=== PATIENT | male | born 1965 | race Caucasian/White ===

== ENCOUNTER 2017-10-03 16:21 | Emergency (ER) | payer SELFPAY ==
[2017-10-03 16:43] VITALS: BP 149/84; PULSE 75; RESP 16; TEMP 98.2; O2SAT 100
--- NOTE | 2017-10-03 17:36 | RADRPT ---
EXAM DATE/TIME: 10/03/2017 16:58 [facility] COMPARISON: No previous studies available for comparison. INDICATIONS : Palpitations. Patient states weakness and vomiting. MEDICAL HISTORY : None. SURGICAL HISTORY : None. ENCOUNTER: Initial ACUITY: 4 - 6 days PAIN SCORE: 0/10 LOCATION: Bilateral chest FINDINGS: Mild cardiomegaly is noted. The pulmonary vascular pattern is normal. The lungs are clear. CONCLUSION: Mild cardiomegaly. No focal infiltrate or pulmonary vascular congestion. Kane Ontiveros MD on October 03, 2017 at 17:32 Board Certified Radiologist. This report was verified electronically.
[2017-10-03 18:01] LABS: AUTOMATED NEUTROPHIL # 6.8 TH/MM3 (1.8-7.7); BASOPHIL # 0.1 TH/MM3 (0-0.2); BASOPHIL % 0.5 % (0.0-2.0); EOSINOPHIL % 0.3 % (0.0-4.0); HEMATOCRIT 41.7 % (39.0-51.0); HEMOGLOBIN 14.6 GM/DL (13.0-17.0); LYMPHOCYTE # 1.8 TH/MM3 (1.0-4.8); MEAN CELL VOLUME 88.2 FL (80.0-100.0); MEAN CORPUSCULAR HEMOGLOBIN 30.8 PG (27.0-34.0); MEAN CORPUSCULAR HGB CONC 34.9 % (32.0-36.0); MONO % 7.2 % (0.0-8.0); MONOCYTE # 0.7 TH/MM3 (0-0.9); PLATELET COUNT 333 TH/MM3 (150-450); RED BLOOD COUNT 4.73 MIL/MM3 (4.50-5.90); RED CELL DISTRIBUTION WIDTH 12.9 % (11.6-17.2); WHITE BLOOD COUNT 9.4 TH/MM3 (4.0-11.0)
[2017-10-03 18:18] LABS: ALBUMIN 4.1 GM/DL (3.4-5.0); AST (GOT) 27 U/L (15-37); BLOOD UREA NITROGEN 12 MG/DL (7-18); CALCIUM 8.3 MG/DL (8.5-10.1); CHLORIDE 93 MEQ/L (98-107); CREATININE 0.96 MG/DL (0.60-1.30); GLOMERULAR FILTRATION RATE 83 ML/MIN (>89); GLUCOSE,RANDOM 108 MG/DL (74-106); MAGNESIUM 1.8 MG/DL (1.5-2.5); SODIUM (NA) 127 MEQ/L (136-145)
[2017-10-03 18:19] LABS: ALT (GPT) 37 U/L (12-78)
[2017-10-03 18:20] VITALS: BP 160/83; PULSE 79; RESP 16; O2SAT 98
[2017-10-03 18:21] LABS: BILIRUBIN, URINE NEG (NEG); BLOOD, URINE NEG (NEG); GLUCOSE,URINE NEG (NEG); HYALINE CAST, URINE 11 /lpf (RARE); KETONE, URINE NEG (NEG); MUCUS URINE FEW /lpf (OCC); NITRITE,URINE NEG (NEG); SQUAMOUS EPITHELIAL CELL URINE <1 /hpf (0-5); URINE COLOR YELLOW (YELLW/STRAW); URINE LEUKOCYTE ESTERASE NEG (NEG)
[2017-10-03 18:23] LABS: ALKALINE PHOSPHATASE 62 U/L (45-117); TOTAL BILIRUBIN ADULT 0.9 MG/DL (0.2-1.0); TOTAL PROTEIN 7.5 GM/DL (6.4-8.2); TROPONIN I LESS THAN 0.02 NG/ML (0.02-0.05)
[2017-10-03] MEDS ORDERED: SODIUM CHLOR 0.9% 1000 ML INJ 1,000 ML IV SCH (18:27)
[2017-10-03 18:28] LABS: PROTHROMBIN TIME - PATIENT 10.3 SEC (9.8-11.6)
--- NOTE | 2017-10-03 18:29 | PD ---
HPI Chief Complaint: General Weakness Time Seen by Provider: 18:27 Travel History International Travel<30 days: No Contact w/Intl Traveler<30days: No History of Present Illness HPI This is a 52-year-old male with history of hypertension who presents for evaluation. He reports that for the past 3 days he has had generalized fatigue , loss of appetite. He reports that today he developed nausea and has had 3 episodes of nonbloody emesis. He denies headache, chest pain, shortness of breath, abdominal pain, diarrhea, constipation, fevers, chills. He does report that he has chronic neck pain with associated radicular symptoms in the left arm but this is not new. He does report that over the past several weeks he has been drinking more alcohol than usual, specifically he reports that he drinks 2-3 beers a day. He reports that he was at a bar 3 days ago and he used some cocaine. He reports that he has not used any illicit drug in several years. He reports that he has a primary care physician in [place] but he lives in [facility]. He has no other complaints at this time. [facility] Past Medical History Hypertension: Yes Social History Alcohol Use: Yes Tobacco Use: No Allergies-Medications (Allergen,Severity, Reaction): Coded Allergies: No Known Allergies (Unverified , 10/03/17) Reported Meds & Prescriptions Reported Meds & Active Scripts Active Zofran (Ondansetron HCl) 4 Mg Tab 4 Mg PO Q6HR PRN Potassium Chloride ER (Potassium Chloride) 20 Meq Tab 20 Meq PO BID 3 Days Reported Lisinopril 10 Mg Tab 10 Mg PO DAILY Carvedilol 12.5 Mg Tab 12.5 Mg PO BID Hydrochlorothiazide 50 Mg Tab 50 Mg PO BID Pravastatin 40 Mg Tab 40 Mg PO DAILY Review of Systems Except as stated in HPI: all other systems reviewed are Neg Physical Exam Narrative GENERAL: Well-developed well-nourished male in no acute distress SKIN: Warm and dry. HEAD: Atraumatic. Normocephalic. EYES: Pupils equal and round. No scleral icterus. No injection or drainage. ENT: No nasal bleeding or discharge. Mucous membranes pink and moist. NECK: Trachea midline. No JVD. CARDIOVASCULAR: Regular rate and rhythm. No murmur appreciated. RESPIRATORY: No accessory muscle use. Clear to auscultation. Breath sounds equal bilaterally. No crackles no wheezing no rhonchi. GASTROINTESTINAL: Abdomen soft, non-tender, nondistended. Hepatic and splenic margins not palpable. MUSCULOSKELETAL: No obvious deformities. No clubbing. No cyanosis. No edema. NEUROLOGICAL: Awake and alert. No obvious cranial nerve deficits. Motor grossly within normal limits. Normal speech. PSYCHIATRIC: Appropriate mood and affect; insight and judgment normal. Data Data Last Documented VS Vital Signs Date Time Temp Pulse Resp B/P (MAP) Pulse Ox O2 Delivery O2 Flow Rate FiO2 10/03/17 18:20 Room Air 10/03/17 18:20 79 16 160/83 (108) 98 10/03/17 16:43 98.2 Orders Orders Electrocardiogram (10/03/17 16:47) Complete Blood Count With Diff (10/03/17 16:47) Comprehensive Metabolic Panel (10/03/17 16:47) Magnesium (Mg) (10/03/17 16:47) Ckmb (Isoenzyme) Profile (10/03/17 16:47) Troponin I (10/03/17 16:47) Act Partial Throm Time (Ptt) (10/03/17 16:47) Prothrombin Time / Inr (Pt) (10/03/17 16:47) Urinalysis - C+S If Indicated (10/03/17 16:47) Chest, Pa & Lat (10/03/17 16:47) Ct Brain W/O Iv Contrast(Rout) (10/03/17 16:47) Blood Glucose (10/03/17 16:47) Drug Screen, Random Urine (10/03/17 18:27) Potassium Chloride (Kcl) (10/03/17 18:30) Ondansetron Inj (Zofran Inj) (10/03/17 18:30) Sodium Chlor 0.9% 1000 Ml Inj (Ns 1000 M (10/03/17 18:27) Labs Laboratory Tests Test 10/03/17 17:25 White Blood Count 9.4 TH/MM3 Red Blood Count 4.73 MIL/MM3 Hemoglobin 14.6 GM/DL Hematocrit 41.7 % Mean Corpuscular Volume 88.2 FL Mean Corpuscular Hemoglobin 30.8 PG Mean Corpuscular Hemoglobin Concent 34.9 % Red Cell Distribution Width 12.9 % Platelet Count 333 TH/MM3 Mean Platelet Volume 8.0 FL Neutrophils (%) (Auto) 73.0 % Lymphocytes (%) (Auto) 19.0 % Monocytes (%) (Auto) 7.2 % Eosinophils (%) (Auto) 0.3 % Basophils (%) (Auto) 0.5 % Neutrophils # (Auto) 6.8 TH/MM3 Lymphocytes # (Auto) 1.8 TH/MM3 Monocytes # (Auto) 0.7 TH/MM3 Eosinophils # (Auto) 0.0 TH/MM3 Basophils # (Auto) 0.1 TH/MM3 CBC Comment DIFF FINAL Differential Comment Prothrombin Time 10.3 SEC Prothromb Time International Ratio 1.0 RATIO Activated Partial Thromboplast Time 25.5 SEC Urine Color YELLOW Urine Turbidity CLEAR Urine pH 5.0 Urine Specific S[place] 1.021 Urine Protein NEG mg/dL Urine Glucose (UA) NEG mg/dL Urine Ketones NEG mg/dL Urine Occult Blood NEG Urine Nitrite NEG Urine Bilirubin NEG Urine Urobilinogen LESS THAN 2.0 MG/DL Urine Leukocyte Esterase NEG Urine WBC LESS THAN 1 /hpf Urine Squamous Epithelial Cells <1 /hpf Urine Hyaline Casts 11 /lpf Urine Mucus FEW /lpf Microscopic Urinalysis Comment CULT NOT INDICATED Blood Urea Nitrogen 12 MG/DL Creatinine 0.96 MG/DL Random Glucose 108 MG/DL Total Protein 7.5 GM/DL Albumin 4.1 GM/DL Calcium Level 8.3 MG/DL Magnesium Level 1.8 MG/DL Alkaline Phosphatase 62 U/L Aspartate Amino Transf (AST/SGOT) 27 U/L Alanine Aminotransferase (ALT/SGPT) 37 U/L Total Bilirubin 0.9 MG/DL Sodium Level 127 MEQ/L Potassium Level 3.0 MEQ/L Chloride Level 93 MEQ/L Carbon Dioxide Level 23.0 MEQ/L Anion Gap 11 MEQ/L Estimat Glomerular Filtration Rate 83 ML/MIN Total Creatine Kinase 100 U/L Troponin I LESS THAN 0.02 NG/ML [facility] Medical Decision Making Medical Screen Exam Complete: Yes Emergency Medical Condition: Yes Medical Record Reviewed: Yes Differential Diagnosis Electrolyte abnormality, gastroenteritis, dehydration, gastritis, withdrawal Narrative Course The patient was placed on ECG monitoring pulse oximetry, 12-lead EKG was obtained revealing sinus rhythm with arrhythmia with no ischemic changes. The patient was given IV fluids, Zofran. His lab work is been reviewed. His sodium is 127, chloride is 193, potassium is 3.0, random glucose 108, calcium 8.3 otherwise unremarkable, cardiac enzymes negative, urinalysis normal, chest x -ray reveals mild cardiomegaly, CT brain reveals no acute normalities. The patient was given 40 mEq oral potassium chloride. Upon further discussion with the patient he does report that over the past several days he has been consuming larger amounts of beer than normal and this may be the etiology for this mild hyponatremia. I offered to admit the patient for observation overnight to correct his electrolytes however he is declining at this time and feels well enough to go home. He will be given prescriptions for Zofran and potassium chloride. Recommended calling his primary care physician tomorrow for follow-up purposes. Diagnosis Primary Impression: Hypokalemia Additional Impression: Hyponatremia Additional Instructions: Please provide the patient a copy of his lab work upon discharge. Medication as prescribed. Follow-up with your primary care physician in the next few days. Return for any acutely new or worsening symptoms such as mental status change, intractable nausea and vomiting Med/Other Pt SpecificInfo: Prescription(s) given Scripts Ondansetron (Zofran) 4 Mg Tab 4 MG PO Q6HR Y for NAUSEA OR VOMITING, #20 TAB 0 Refills Prov: Jose Luna MD 10/03/17 Potassium Chloride ER (Potassium Chloride ER) 20 Meq Tab 20 MEQ PO BID for Electrolyte Replacement for 3 Days, #6 TAB 0 Refills Prov: Jose Luna MD 10/03/17 Disposition: 01 DISCHARGE HOME Condition: Stable Cayetano Martel Oct 03, 2017 18:29
[2017-10-03] MEDS ORDERED: ONDANSETRON HCL 4 MG/2 ML VIAL IVP ONE (18:30)
[2017-10-03] MEDS ORDERED: POTASSIUM CHLORIDE 20 MEQ CONTROLLED RELEASE TAB PO ONE (18:30)
[2017-10-03] MEDS ORDERED: LISI10TA3 PO (18:44)
[2017-10-03] MEDS ORDERED: HYDR50TA3 PO (18:44)
[2017-10-03] MEDS ORDERED: PRAV40TA2 PO (18:44)
[2017-10-03] MEDS ORDERED: CARV12.52 PO (18:44)
--- NOTE | 2017-10-03 19:29 | RADRPT ---
EXAM DATE/TIME: 10/03/2017 19:12 [facility] COMPARISON: No previous studies available for comparison. INDICATIONS : Dizziness, Vomiting RADIATION DOSE: 43.49 CTDIvol (mGy) MEDICAL HISTORY : None SURGICAL HISTORY : None. ENCOUNTER: Initial ACUITY: 1 day PAIN SCALE: 0/10 LOCATION: cranial TECHNIQUE: Multiple contiguous axial images were obtained of the head. Using automated exposure control and adj ustment of the mA and/or kV according to patient size, radiation dose was kept as low as reasonably a chievable to obtain optimal diagnostic quality images. DICOM format image data is available electro nically for review and comparison. FINDINGS: CEREBRUM: The ventricles are normal for age. No evidence of midline shift, mass lesion, hemorrhage or acute in farction. No extra-axial fluid collections are seen. POSTERIOR FOSSA: The cerebellum and brainstem are intact. The 4th ventricle is midline. The cerebellopontine angle i s unremarkable. EXTRACRANIAL: The visualized portion of the orbits is intact. SKULL: The calvaria is intact. No evidence of skull fracture. CONCLUSION: Negative noncontrast CT. Jorge Justice MD on October 03, 2017 at 19:25 Board Certified Radiologist. This report was verified electronically.
[2017-10-03] MEDS ORDERED: ZOFR4TAB PO (19:46)
[2017-10-03] MEDS ORDERED: POTA-163 PO (19:46)
--- NOTE | 2017-10-04 21:28 | EKG ---
Date Performed: 10/03/2017 Time Performed: 18:30:13 PTAGE: 52 years EKG: Sinus rhythm WITH SINUS ARRHYTHMIA NORMAL ECG NO PREVIOUS TRACING DOCTOR: Ronen Ortiz Interpretating Date/Time 10/04/2017 21:28:21
== END 2017-10-03 20:33 | disposition home or self-care (01) ==
LOC: NEPC 16:21
DX: E87.6 Hypokalemia (principal); E87.1 Hypo-osmolality and hyponatremia; R11.2 Nausea with vomiting, unspecified; M54.2 Cervicalgia; G89.29 Other chronic pain; I49.9 Cardiac arrhythmia, unspecified; I51.7 Cardiomegaly; I10 Essential (primary) hypertension; Z79.899 Other long term (current) drug therapy
CPT/HCPCS: 70450; 71046; 80053; 80307; 81001; 82550; 83735; 84484; 85025; 85610; 85730; 93005; 96361; 96374; 99285; J2405; J7030